=== PATIENT | female | born 1950 | race Caucasian/White ===

== ENCOUNTER → 2024-08-20 06:29 | Outpatient (ROUT) | payer MEDICARE, OTHER, MEDICAID, SELFPAY ==
[2024-08-20 08:17] LABS: Add Manual Diff / Slide Review NO; Basophils Absolute Auto 0 /uL (0-100); Basophils Percent Auto 0.3 % (0-2); Eosinophils Absolute Auto 100 /uL (0-450); Eosinophils Percent Auto 1.1 % (2-4); Hematocrit 39.1 % (36-46); Hemoglobin 13.1 g/dL (12.0-16.0); Lymphocytes Absolute Auto 1100 /uL (1100-4500); Lymphocytes Percent Auto 16.4 % (25-40); Mean Corpuscular HGB Conc 33.6 % (30-36); Mean Corpuscular Hemoglobin 31.4 PG (26-34); Mean Corpuscular Volume 93.2 fL (80-100); Monocytes Absolute Auto 500 /uL (0-900); Monocytes Percent Auto 8.4 % (3-14); Neutrophils Absolute Auto 4800 /uL (1500-7000); Neutrophils Percent Auto 73.8 % (50-75); Platelet Count 314 X10^3/uL (150-400); Red Blood Cell Count 4.19 X10^6/uL (4.0-5.2); Red Cell Distribution Width 12.8 % (11.6-14.8); White Blood Cell Count 6.5 X10^3/uL (4.5-11.0)
[2024-08-20 08:39] LABS: Alanine Aminotransferase 17 IU/L (<35); Albumin 4.2 g/dL (3.5-5.0); Albumin Globulin Ratio 1.8 (1.0-2.8); Alkaline Phosphatase 105 U/L (38-126); Aspartate Aminotransferase 26 IU/L (14-36); BUN Creatinine Ratio 25.4 (6-22); Bilirubin Total 0.7 mg/dL (0.2-1.3); Blood Urea Nitrogen 18 mg/dL (7-17); Calcium 9.7 mg/dL (8.4-10.2); Carbon Dioxide 26 mmol/L (22-32); Chloride 110 mmol/L (98-107); Estimated Glomerular Filt Rate > 60 mL/min (>60); Globulin 2.4 g/dL (1.7-4.1); Glucose 95 mg/dL (80-110); HEMOLYSIS < 15 (0-50); Potassium 4.6 mmol/L (3.4-5.1); Sodium 141 mmol/L (137-145); Total Protein 6.6 g/dL (6.3-8.2)
[2024-08-20 09:00] LABS: Thyroid Stimulating Hormone 0.389 uIU/mL (0.47-4.68)
[2024-08-20 09:36] LABS: Folate 12.4 ng/mL (2.76-20.0); Vitamin B12 573 pg/mL (239-931)
== END ==
PROVIDERS: Visit Provider Registered Nurse
DX: R63.4 Abnormal weight loss (principal); G30.1 Alzheimer's disease with late onset; F02.82 Dementia in other diseases classified elsewhere, unspecified severity, with psychotic disturbance; E03.9 Hypothyroidism, unspecified
CPT/HCPCS: 36415; 80053; 82607; 82746; 84443; 85025

== ENCOUNTER → 2024-12-16 17:42 | Outpatient (ROUT) | payer MEDICARE, OTHER, MEDICAID, SELFPAY ==
[2024-12-16 17:57] LABS: Appearance Urine UA CLEAR; Bilirubin Urine UA NEGATIVE (NEGATIVE); Color Urine UA YELLOW; Glucose Urine UA NEGATIVE (Negative); Ketones Urine UA NEGATIVE (NEGATIVE); Leukocyte Esterase Urine UA NEGATIVE (NEGATIVE); Nitrite Urine UA NEGATIVE (Negative); Occult Blood Urine UA NEGATIVE (Negative); Protein Urine UA NEGATIVE (Negative); Specific Gravity Urine UA 1.015 (1.000-1.035); Urobilinogen Urine UA 0.2 E.U./dL (0.2)
[2024-12-16 18:24] LABS: Bacteria Urine Few (2-10); Culture Indicated Urine Specimen Cultured; RBC Urine None Seen (0-5/HPF); Squamous Epithelial Cell Urine 5-10 /HPF (0-5/HPF); Urine Volume 10mL (spun); WBC Urine 5-10/HPF (0-5/HPF)
== END ==
PROVIDERS: Visit Provider Registered Nurse
DX: Z13.89 Encounter for screening for other disorder (principal)
CPT/HCPCS: 81001; 87086

== ENCOUNTER 2025-05-12 09:30 | Emergency (ER) | payer MEDICARE, OTHER, MEDICAID, SELFPAY ==
[2025-05-12 09:32] VITALS: BP 127/58; PULSE 100; RESP 15; TEMP 36.4; O2SAT 96
--- NOTE | 2025-05-12 09:39 | DI.RAD.S_ITS ---
PROCEDURE: XR HIP W PEL IF DONE RT 2V INDICATIONS: hit hip on wheelchair TECHNIQUE: 2 views of the hip were acquired. COMPARISON: None. FINDINGS AND IMPRESSION: Mild bilateral hip arthrosis. No dislocation. No displaced fractures identified. Mild calcific tendinopathy at the greater trochanters. Possible phlebolith or calcified fibroid projecting over the right pelvis. there is high concern for occult injury, consider repeat radiography in about 7 days or cross-sectional imaging. Dictated by: Daryl Valdes M.D. on 05/12/2025 at 10:17 Approved by: Daryl Valdes M.D. on 05/12/2025 at 10:17
--- NOTE | 2025-05-12 12:36 | ED_ITS ---
<Statement entered by Saurabh Cheatham MD - 06/03/25 07:33> I was personally available in the department for consultation at the time the patient was seen HPI - Extremity Injury (Lower) General Chief Complaint: Extremity Injury, Lower Stated Complaint: Rt hip injury Time Seen by Provider: 05/12/25 09:30 Source: EMS Mode of arrival: EMS History of Present Illness HPI Narrative: 74-year-old female with past medical history dementia who lives across the street at [facility] brought in by her niece status post a mechanical fall sustained earlier today. Patient's niece was called to take the patient to the emergency department. According to the niece, the [facility] folks told her that patient was complaining hip pain after she fell when she was trying to help another resident to get up from bed. Patient is an agile walker at baseline, per niece. Unclear if injury was witnessed. In the ED, patient is complaining of left-sided hip pain, but is able to ambulate unassisted. Related Data Allergies Allergy/AdvReac Type Severity Reaction Status Date / Time No Known Drug Allergies Allergy Verified 05/12/25 09:32 Review of Systems Review of Systems ROS Unobtainable: Unobtainable due to mental condition Exam Narrative Exam Narrative: Const General:?cooperative, healthy appearing and comfortable [facility] Head:?normal to inspection Ears:?hearing grossly normal bilaterally Nose:?external nose normal Face and sinus:?normal facial exam and sinuses nontender Mouth:?oral mucosae normal Throat:?posterior oropharynx normal Eyes General:?appearance normal, both eyes and all related structures Neck Neck:?normal visual inspection and no lymphadenopathy noted Resp Effort & Inspection:?normal respiratory effort Auscultation:?clear to auscultation bilaterally Cardio Rate:?regular rate Rhythm:?regular rhythm Musculoskeletal Tenderness to palpation of the left hip. No deformities, swelling, bruising noted on exam. Neuro General:?patient alert, patient awake and patient oriented x3 Initial Vital Signs Initial Vital Signs: Vital Signs Temperature 97.5 F L 05/12/25 09:32 Pulse Rate 100 H 05/12/25 09:32 Respiratory Rate 15 05/12/25 09:32 Blood Pressure 127/58 L 05/12/25 09:32 Pulse Oximetry 96 05/12/25 09:32 Oxygen Delivery Method Room Air 05/12/25 09:32 Course Orders Ordered: ED Orders 05/12/25 09:39 XR hip w pel RT 2V Stat 05/12/25 12:42 XR hip w pel LT 2V Stat 05/12/25 14:29 CT pelvis wo con Stat Vital Signs Vital signs: Vital Signs - 8 hr 05/12/25 09:32 05/12/25 15:47 Temperature 97.5 F L Pulse Rate 100 H 68 Respiratory Rate 15 15 Blood Pressure 127/58 L 145/71 H Pulse Oximetry 96 100 Oxygen Delivery Method Room Air Room Air MDM - Extremity Injury (Lower) MDM Narrative Medical decision making narrative: 74-year-old female with past medical history dementia who lives across the street at [facility] brought in by her niece status post a mechanical fall sustained earlier today. Concern for fracture/dislocation versus musculoskeletal sprain/strain versus other. Will obtain x-rays, reassess. Right hip x-ray shows no displaced fractures, no dislocation. Left hip x-ray shows no acute displaced fracture. There is a questionable trabecular lucency projecting over the mid left femoral neck. CT of the pelvis was obtained to further characterize. CT shows that the radiographic finding likely represents overlapping soft tissue at artifact. No fracture or dislocation on CT. Discussed findings with patient and patient's knees. Recommend supportive care with Tylenol and lidocaine patches. ED return precautions discussed with patient's knees. She verbalized understanding. Medical records reviewed: Yes Discharge Plan Departure Patient Disposition: Home Clinical Impression: Hip pain Qualifiers: Laterality: left Qualified Code(s): M25.552 - Pain in left hip Instructions: DI for Hip Pain Activity Restrictions/Additional Instructions: Were evaluated in the emergency department today for hip pain from a fall. CT scan did not show any fractures or dislocations. It appears that you have suffered a bruise or contusion from the fall. You may continue to take Tylenol and apply lidocaine patches for relief. Return to the ED if you have worsening symptoms, numbness, tingling, weakness. Stand Alone Forms: Patient Portal/API, Work Release Note
--- NOTE | 2025-05-12 12:42 | DI.RAD.S_ITS ---
PROCEDURE: XR HIP W PEL IF DONE LT 2V INDICATIONS: fall TECHNIQUE: 2 views of the hip were acquired. COMPARISON: [facility], CR, XR HIP W PEL RT 2V, 05/12/2025, 9:45. FINDINGS AND IMPRESSION: Mild bilateral hip arthrosis. No acute displaced fracture. There is a questionable trabecular lucency projecting over the mid left femoral neck. If there is high concern, consider CT or MRI. Dictated by: Daryl Valdes M.D. on 05/12/2025 at 13:46 Approved by: Daryl Valdes M.D. on 05/12/2025 at 13:47
--- NOTE | 2025-05-12 14:29 | DI.CT.S_ITS ---
PROCEDURE: CT PEL WO CON INDICATIONS: ? left hip fx TECHNIQUE: Noncontrast 3 mm axial sections acquired through the bony pelvis, with coronal and sagittal reformatting. COMPARISON: None. FINDINGS: Image quality: Diagnostic Bones: Bilateral mild arthrosis and calcific tendinopathy. Pelvic ring appears intact. Bilateral sacroiliac ankylosis. No displaced fractures identified. Soft tissues: No significant soft tissue calcifications. Intrapelvic structures appear unremarkable. Colonic diverticula are partially seen. IMPRESSION: No fracture or dislocation. Radiographic finding likely represent overlapping soft tissue artifact. If there is further concern, MRI could further evaluate the hip for soft tissue or nondisplaced injuries. Dictated by: Daryl Valdes M.D. on 05/12/2025 at 15:01 Approved by: Daryl Valdes M.D. on 05/12/2025 at 15:03
[2025-05-12 15:47] VITALS: BP 145/71; PULSE 68; RESP 15; O2SAT 100
== END 2025-05-12 15:48 | disposition home or self-care (01) ==
PROVIDERS: Emergency Provider Student in an Organized Health Care Education/Training Program
DX: M25.552 Pain in left hip (principal); W18.30XA Fall on same level, unspecified, initial encounter
CPT/HCPCS: 72192; 73502; 99281; 99284

== ENCOUNTER → 2025-09-02 06:07 | Outpatient (ROUT) | payer MEDICARE, OTHER, MEDICAID, SELFPAY | DX: E03.9 Hypothyroidism, unspecified (principal) | CPT/HCPCS: 36415 ==

== ENCOUNTER 2025-09-20 18:36 | Observation (INO) | payer MEDICARE, OTHER, MEDICAID, SELFPAY ==
[2025-09-20] VITALS (22 sets, daily range): BP systolic 113–169; BP diastolic 57–86; PULSE 94–151; RESP 15–44; TEMP 37–39.1; O2SAT 93–97; BMI 33.2
--- NOTE | 2025-09-20 18:54 | DI.RAD.S_ITS ---
PROCEDURE: XR CHEST 1V INDICATIONS: sepsis TECHNIQUE: One view of the chest was acquired. COMPARISON: None. FINDINGS: Surgical changes and devices: None. Lungs and pleura: Shallow inspiration. Lungs are clear. No pleural effusions or pneumothorax. Mediastinum: Mediastinal contours appear normal. Heart size is normal. Bones and chest wall: No suspicious bony lesions. Overlying soft tissues appear unremarkable. IMPRESSION: No acute cardiopulmonary abnormality is seen. Dictated by: Jose Rhoades M.D. on 09/20/2025 at 19:59 Approved by: Jose Rhoades M.D. on 09/20/2025 at 19:59
--- NOTE | 2025-09-20 19:02 | ED.GENADULT ---
HPI - General Adult General Chief complaint: Weakness Stated complaint: Lethargy/Weakness/Fever Time Seen by Provider: 09/20/25 18:53 Source: EMS Mode of arrival: EMS History of Present Illness HPI narrative: 75-year-old female with chart history of dementia, states that she lives in [place] and is visiting daughter in the local area, when in fact she is current resident at [facility], feels feverish and has chills tonight, brought in by ambulance, at triage has fever and tachycardia, SIRS screen positive for sepsis. Denies pain in her chest, abdomen, back. Denies recent cough, chest pain, shortness of breath. Denies diarrhea nausea or vomiting. Denies headache neck pain photophobia symptoms. No injury or trauma new activities recalled. No new medications. Related Data Home Medications ?Medication ?Instructions ?Recorded ?Confirmed divalproex 125 mg capsule,delayed 125 mg PO BID 09/20/25 09/20/25 release sprinkle levothyroxine 100 mcg tablet 100 mcg PO DAILY 09/20/25 09/20/25 nystatin 100,000 unit/gram topical 1 applic topical DAILY PRN rash 09/20/25 09/20/25 powder quetiapine 50 mg tablet 50 mg PO DAILY 09/20/25 09/20/25 sertraline 50 mg tablet 50 mg PO DAILY 09/20/25 09/20/25 Allergies Allergy/AdvReac Type Severity Reaction Status Date / Time No Known Drug Allergies Allergy Verified 09/20/25 18:45 Patient History Social History Smoking Status: Unknown if ever smoked Exam Narrative Exam Narrative: GENERAL: Well-developed patient, in mild distress. Tremulous HEAD: Atraumatic. Normocephalic. EYES: Pupils equal round and reactive. Extraocular motions intact. No scleral icterus. No injection or drainage. ENT: Nose without bleeding, purulent drainage. Throat without erythema, tonsillar hypertrophy or exudate. Airway patent. NECK: Trachea midline. Non tender CARDIOVASCULAR: Fast rate regular rhythm,, gallops, or rubs. RESPIRATORY: Clear to auscultation. Breath sounds equal bilaterally. No wheezes, rales, or rhonchi. GASTROINTESTINAL: Abdomen soft, non-tender, nondistended. EXTREMITIES: No edema or joint tenderness. BACK: Nontender without deformity or crepitance. No flank tenderness. NEURO: AOx3. Motor functions grossly nonfocal. SKIN: No rash or erythema of visible areas Initial Vital Signs Initial Vital Signs: Vital Signs Temperature 102.4 F H 09/20/25 18:45 Pulse Rate 110 H 09/20/25 18:45 Respiratory Rate 20 09/20/25 18:45 Blood Pressure 167/74 H 09/20/25 18:45 Pulse Oximetry 93 09/20/25 18:45 Oxygen Delivery Method Room Air 09/20/25 18:45 Course Orders Ordered: ED Orders 09/20/25 18:54 XR chest 1V Stat Urinalysis and Microscopic Stat EKG-12 Lead Stat 09/20/25 18:56 Complete Blood Count AUTO DIFF Stat Comprehensive Metabolic Panel Stat Lactate (Lactic Acid) Stat Procalcitonin Stat 09/20/25 19:19 Blood Culture Stat 09/20/25 19:29 CT abdomen pelvis wo con Stat 09/20/25 19:45 Covid-19 + FLU A/B + RSV - PCR Stat 09/20/25 21:46 Consult to Occupational Therapy Evaluate & Treat Consult to Physical Therapy Evaluate & Treat 09/21/25 06:00 Basic Metabolic Panel DAILY Complete Blood Count AUTO DIFF DAILY Acetaminophen (Acetaminophen 325 Mg Tablet) 650 mg PO Q6H PRN PRN Reason: Fever/Mild Pain (1-3) Divalproex Sodium (Divalproex 125 Mg Cap) 125 mg PO BID MILLA Sodium Chloride (Normal Saline 0.9%) 1,000 mls @ 75 mls/hr IV CONT MILLA Last Admin: 09/20/25 22:06 Dose: 75 mls/hr Documented By: BZ Levothyroxine Sodium (Levothyroxine 100 Mcg Tablet) 100 mcg PO DAILY MILLA Naloxone HCl (Naloxone 0.4 Mg/Ml Vial) 0.2 mg IV Q2MIN PRN PRN Reason: Opiate Reversal Nystatin (Nystatin Powder 15gm) 1 applic TOP DAILY PRN PRN Reason: Rash Olanzapine (Olanzapine Odt 10 Mg Tab) 10 mg PO Q6H PRN PRN Reason: Agitation Last Admin: 09/21/25 00:45 Dose: 10 mg Documented By: SH Ondansetron HCl (Ondansetron 4 Mg/2 Ml Inj) 4 mg IV Q8HR PRN PRN Reason: Nausea And Vomiting Quetiapine Fumarate (Quetiapine 25 Mg Tablet) 50 mg PO DAILY MILLA Sertraline HCl (Sertraline 50 Mg Tablet) 50 mg PO DAILY MILLA Discontinued Medications Ceftriaxone Sodium 2,000 mg/ (Sodium Chloride) 100 mls @ 200 mls/hr IV STAT ONE Stop: 09/20/25 18:55 Last Infusion: 09/20/25 20:25 Dose: Infused Documented By: Admin: 09/20/25 19:32 Dose: 200 mls/hr Documented By: PETE Sodium Chloride (Normal Saline 0.9%) 2,634 mls @ 1,756 mls/hr 30 ml/kg infuse over 90 min (2634 ml) IV NOW ONE Stop: 09/20/25 20:32 Last Infusion: 09/20/25 21:22 Dose: Infused Documented By: Admin: 09/20/25 19:12 Dose: 1,756 mls/hr Documented By: PETE Sodium Chloride (Normal Saline 0.9%) 1,000 mls @ 2,700 mls/hr IV BOLUS ONE Stop: 09/20/25 19:19 Last Admin: 09/20/25 19:31 Dose: Not Given Documented By: PETE Ibuprofen (Ibuprofen 400 Mg Tablet) 800 mg PO NOW ONE Stop: 09/20/25 19:43 Last Admin: 09/20/25 20:01 Dose: 800 mg Documented By: SIXTO Olanzapine (Olanzapine 10 Mg Vial) 5 mg IM Q6H PRN PRN Reason: Agitation Vital Signs Vital signs: Vital Signs - 8 hr 09/20/25 18:45 09/20/25 18:56 09/20/25 19:00 Temperature 102.4 F H Pulse Rate 110 H 108 H 114 H Respiratory Rate 20 15 20 Blood Pressure 167/74 H Pulse Oximetry 93 96 96 Oxygen Delivery Method Room Air 09/20/25 19:01 09/20/25 19:01 09/20/25 19:15 Temperature 101.7 F H Pulse Rate 99 H Respiratory Rate 16 Blood Pressure 169/63 H Pulse Oximetry 96 Oxygen Delivery Method 09/20/25 19:30 09/20/25 20:00 09/20/25 20:00 Temperature Pulse Rate 105 H 151 H Respiratory Rate 18 18 Blood Pressure 137/67 Pulse Oximetry 96 97 Oxygen Delivery Method Room Air 09/20/25 20:20 09/20/25 20:20 09/20/25 20:23 Temperature Pulse Rate 110 H Respiratory Rate 20 Blood Pressure 146/74 H 130/86 Pulse Oximetry 97 Oxygen Delivery Method 09/20/25 20:23 09/20/25 20:30 09/20/25 20:30 Temperature Pulse Rate 107 H 104 H Respiratory Rate 18 19 Blood Pressure 133/78 Pulse Oximetry 96 96 Oxygen Delivery Method 09/20/25 20:45 09/20/25 20:45 09/20/25 21:00 Temperature 98.6 F Pulse Rate 105 H Respiratory Rate 20 Blood Pressure 129/66 Pulse Oximetry 96 Oxygen Delivery Method 09/20/25 21:00 09/20/25 21:00 09/20/25 21:16 Temperature Pulse Rate 104 H Respiratory Rate 20 Blood Pressure 136/67 144/66 H Pulse Oximetry 93 Oxygen Delivery Method 09/20/25 21:16 09/20/25 21:30 09/20/25 21:30 Temperature Pulse Rate 105 H 107 H Respiratory Rate 24 20 Blood Pressure 122/60 Pulse Oximetry 95 95 Oxygen Delivery Method 09/20/25 21:45 09/20/25 21:45 09/20/25 22:00 Temperature Pulse Rate 101 H Respiratory Rate 16 Blood Pressure 116/57 L 126/58 L Pulse Oximetry 93 Oxygen Delivery Method Room Air 09/20/25 22:00 Temperature Pulse Rate 101 H Respiratory Rate 22 Blood Pressure Pulse Oximetry 95 Oxygen Delivery Method Medical Decision Making Lab Data Lab results reviewed: Yes I reviewed the patient's lab results. Lab results narrative: White blood cell count 9200, hemoglobin 12.4, platelets adequate. Glucose 128. Renal function, serum CO2, electrolytes normal. AST slight elevation, other liver functions normal. Lactate 1.9 normal, procalcitonin not elevated. COVID positive, RSV and influenza negative. 09/20/25 18:56 09/20/25 18:56 Labs: Lab Results 09/20/25 09/20/25 Range/Units 18:56 19:45 WBC 9.2 (4.5-11.0) X10^3/uL RBC 3.94 L (4.0-5.2) X10^6/uL Hgb 12.4 (12.0-16.0) g/dL Hct 37.2 (36-46) % MCV 94.5 (80-100) fL MCH 31.6 (26-34) PG MCHC 33.4 (30-36) % RDW 13.3 (11.6-14.8) % Plt Count 255 (150-400) X10^3/uL Neut % (Auto) 83.3 H (50-75) % Lymph % (Auto) 8.0 L (25-40) % [place] % (Auto) 8.5 (3-14) % Eos % (Auto) 0.1 L (2-4) % Baso % (Auto) 0.1 (0-2) % Neut # (Auto) 7600 H (8464-5943) /uL Lymph # (Auto) 700 L (4882-9890) /uL [place] # (Auto) 800 (0-900) /uL Eos # (Auto) 0 (0-450) /uL Baso # (Auto) 0 (0-100) /uL Sodium 142 (137-145) mmol/L Potassium 3.9 (3.4-5.1) mmol/L Chloride 105 (98-107) mmol/L Carbon Dioxide 28 (22-32) mmol/L BUN 23 H (7-17) mg/dL Creatinine 0.82 (0.52-1.04) mg/dL Estimated GFR > 60 (>60) mL/min BUN/Creatinine Ratio 28.0 H (6-22) Glucose 128 H (70-99) mg/dL Lactate 1.9 (0.7-2.1) mmol/L Calcium 9.2 (8.4-10.2) mg/dL Total Bilirubin 0.2 (0.2-1.3) mg/dL AST 37 H (14-36) IU/L ALT 23 (<35) IU/L Alkaline Phosphatase 87 (38-126) U/L Total Protein 7.3 (6.3-8.2) g/dL Albumin 4.4 (3.5-5.0) g/dL Globulin 2.9 (1.7-4.1) g/dL Albumin/Globulin Ratio 1.5 (1.0-2.8) Procalcitonin 0.072 (<0.5) ng/mL SARS-CoV-2 (PCR) Positive H (Negative) Influenza A (RT-PCR) Flu a negative (NEGATIVE) Influenza B (RT-PCR) Flu b negative (NEGATIVE) RSV (PCR) Negative (Negative) Imaging Data Chest x-ray: Radiologist's Impression: [address] [address] XRay Report Signed Patient: Sobia Chadwick MR#: [id number] : 1950 Acct:[id number] Age/Sex: 75 / F Date of Service: 09/20/25 Loc: ED Accession Number: [id number] Procedure: XR chest 1V Ordering Provider: Brayan Mancini MD PROCEDURE: XR CHEST 1V INDICATIONS: sepsis TECHNIQUE: One view of the chest was acquired. COMPARISON: None. FINDINGS: Surgical changes and devices: None. Lungs and pleura: Shallow inspiration. Lungs are clear. No pleural effusions or pneumothorax. Mediastinum: Mediastinal contours appear normal. Heart size is normal. Bones and chest wall: No suspicious bony lesions. Overlying soft tissues appear unremarkable. IMPRESSION: No acute cardiopulmonary abnormality is seen. Dictated by: Jose Rhoades M.D. on 09/20/2025 at 19:59 Approved by: Jose Rhoades M.D. on 09/20/2025 at 19:59 CT scan - abdomen/pelvis: Radiologist's Impression: [address] [address] [address] Scan Report Signed Patient: Sobia Chadwick MR#: [id number] : 1950 Acct:[id number] Age/Sex: 75 / F Date of Service: 09/20/25 Loc: ED Accession Number: [id number] Procedure: CT abdomen pelvis wo con Ordering Provider: Brayan Mancini MD PROCEDURE: CT ABDOMEN PELVIS WO CON INDICATIONS: fever TECHNIQUE: CT of the abdomen and pelvis was obtained without intravenous contrast. Coronal and sagittal reformats were performed. For radiation dose reduction, the following was used: automated exposure control, adjustment of mA and/or kV according to patient size. COMPARISON: None. FINDINGS: Image quality: Moderately motion degraded examination. Lower Chest: No significant findings. ABDOMEN: Liver: No contour-deforming mass. Gallbladder: No radiopaque gallstones or wall thickening. Biliary ducts: No biliary dilation. Pancreas: No ductal dilation. Spleen: Size is within normal limits. Adrenal Glands: No adrenal nodules. Kidneys and Ureters: No hydronephrosis. No contour-deforming mass. Stomach and Bowel: Normal colonic caliber, without significant wall thickening. Scattered colonic diverticula without evidence of acute diverticulitis. Normal appendix. Peritoneum: No abnormal intraperitoneal fluid. No free air. Ventral Wall: Small fat containing umbilical hernia. Abdominal Nodes: No retroperitoneal or mesenteric adenopathy by size criteria. Vessels: Aorta and inferior vena cava are normal in size. PELVIS: Pelvic Organs: Unremarkable. Bladder: Unremarkable. Pelvic Nodes: No enlarged lymph nodes. Miscellaneous: Small bilateral fat containing inguinal hernias. Bones: No aggressive osseous abnormality. Degenerative changes of the osseous structures. IMPRESSION: Moderately motion degraded examination. Within limitations: No acute abnormality is identified in the abdomen or pelvis. Dictated by: Sebas Dash M.D. on 09/20/2025 at 20:38 Approved by: Sebas Dash M.D. on 09/20/2025 at 20:42 ECG Data Attestation: I personally reviewed and interpreted this ECG as follows: Interpretation: 1910, normal sinus rhythm with a rate of 99, no obvious ST segment elevation or depression changes. Movement artifact noted, patient tremulous. PA 156, QRS 90, QTC 433. [facility] Narrative Medical decision making narrative: 75-year-old female resident of [facility], history of dementia, believes that she is visiting her daughter in the area that she lives in [place], has shaking chills and fever tonight, BIBA, fever and tachycardia on triage noted, no oxygen requirement, normotensive. Feels weak all over. Sepsis alert. Blood cultures, IV fluids, IV ceftriaxone, urine requested, chest x-ray and COVID swab sent. EKG sinus rhythm, no obvious acute ischemic changes. Chest x-ray, no lobar infiltrate, see radiology report. Lab data: White blood cell count 9200, hemoglobin 12.4, platelets adequate. Glucose 128. Renal function, serum CO2, electrolytes normal. AST slight elevation, other liver functions normal. Lactate 1.9 normal, procalcitonin not elevated. COVID positive, RSV and influenza negative. CT abdomen and pelvis noncontrast, no acute changes, some limitation due to movement/tremor artifact. See radiology report. COVID found to be positive. Empiric antibiotics ceftriaxone for positive SIRS, shaking chills rigors, generalized weakness, history of dementia. Consider admission. Patient feels that she needs to be admitted. We will contact hospitalist. [id number], case discussed with hospitalist Dr. Martinez who accepts patient for admission to observation Critical Care Time Critical Care Time Critical Care Time: Yes Total Critical Care Time: 35 Attestation: The high probability of a clinically significant, sudden or life threatening deterioration of the [abdominopelvic, cardiopulmonary, genitourinary] system(s) required my full and direct attention, intervention and personal management. The aggregate critical care time was [35] minutes. This time is in addition to time spent performing reported procedures but includes the following: [x] Data Review and interpretation [x] Patient assessment and monitoring of vital signs [x] Documentation [x] Medication orders and management Discharge Plan Departure Patient Disposition: Admitted as Observation Clinical Impression: COVID-19, Sepsis, Generalized weakness Admit Date/Time: 09/20/25 22:09 Admit Provider: Gagan Martinez Sepsis Evaluation (ED) Level 1 - Infection Sepsis Infection Criteria Present: Suspected New Infection Level 2 - SIRS Sepsis SIRS Criteria Present: Temperature > 101.0 or < 96.8 F and Pulse > 90 bpm Response It is my opinion that this patient have a likely infectious etiology for meeting sepsis criteria: Does Fluid calculation based on 30 mL/kg within 1hr of criteria: ABW used Antibiotics initiated within 1 hr of Sepis dx: Yes (Ordered after triage with positive sepsis screen) Tissue Perfusion Reassessed within 6 hrs of infusion start time: Yes Date of Tissue Perfusion Reassessment completed: 09/20/25 Time Tissue Perfusion Reassessment completed: 20:56 (Rigors have stopped, heart rate seemed to be improving to 100-105 range from 120s, COVID positive noted)
--- NOTE | 2025-09-20 19:10 | EKG_ITS ---
[place] [id number] [place] [address] Test Date: 2025-09-20 Pat Name: Sobia Chadwick Department: Room: 219 Gender: Female Executive Director: NOEMI : 1950 Requested By: Order Number: [id number] Reading MD: David Lange MD Measurements Intervals [place] Rate: 99 P: 52 IN: 156 QRS: -9 QRSD: 90 T: 14 QT: 338 QTc: 433 Interpretive Statements Normal sinus rhythm Nonspecific ST and T wave abnormality Electronically Signed On 09-22-2025 6:44:07 PST by David Lange MD
[2025-09-20 19:13] LABS: Add Manual Diff / Slide Review NO; Hematocrit 37.2 % (36-46); Hemoglobin 12.4 g/dL (12.0-16.0); Lymphocytes Absolute Auto 700 /uL (1100-4500); Mean Corpuscular HGB Conc 33.4 % (30-36); Mean Corpuscular Hemoglobin 31.6 PG (26-34); Mean Corpuscular Volume 94.5 fL (80-100); Platelet Count 255 X10^3/uL (150-400)
[2025-09-20 19:26] LABS: Alanine Aminotransferase 23 IU/L (<35); Albumin 4.4 g/dL (3.5-5.0); Albumin Globulin Ratio 1.5 (1.0-2.8); Alkaline Phosphatase 87 U/L (38-126); Blood Urea Nitrogen 23 mg/dL (7-17); Calcium 9.2 mg/dL (8.4-10.2); Carbon Dioxide 28 mmol/L (22-32); Chloride 105 mmol/L (98-107); Estimated Glomerular Filt Rate > 60 mL/min (>60); Globulin 2.9 g/dL (1.7-4.1); Glucose 128 mg/dL (70-99); HEMOLYSIS < 15 (0-50); Potassium 3.9 mmol/L (3.4-5.1); Sodium 142 mmol/L (137-145); Total Protein 7.3 g/dL (6.3-8.2)
[2025-09-20 19:27] LABS: Lactate (Lactic Acid) 1.9 mmol/L (0.7-2.1)
--- NOTE | 2025-09-20 19:29 | DI.CT.S_ITS ---
PROCEDURE: CT ABDOMEN PELVIS WO CON INDICATIONS: fever TECHNIQUE: CT of the abdomen and pelvis was obtained without intravenous contrast. Coronal and sagittal reformats were performed. For radiation dose reduction, the following was used: automated exposure control, adjustment of mA and/or kV according to patient size. COMPARISON: None. FINDINGS: Image quality: Moderately motion degraded examination. Lower Chest: No significant findings. ABDOMEN: Liver: No contour-deforming mass. Gallbladder: No radiopaque gallstones or wall thickening. Biliary ducts: No biliary dilation. Pancreas: No ductal dilation. Spleen: Size is within normal limits. Adrenal Glands: No adrenal nodules. Kidneys and Ureters: No hydronephrosis. No contour-deforming mass. Stomach and Bowel: Normal colonic caliber, without significant wall thickening. Scattered colonic diverticula without evidence of acute diverticulitis. Normal appendix. Peritoneum: No abnormal intraperitoneal fluid. No free air. Ventral Wall: Small fat containing umbilical hernia. Abdominal Nodes: No retroperitoneal or mesenteric adenopathy by size criteria. Vessels: Aorta and inferior vena cava are normal in size. PELVIS: Pelvic Organs: Unremarkable. Bladder: Unremarkable. Pelvic Nodes: No enlarged lymph nodes. Miscellaneous: Small bilateral fat containing inguinal hernias. Bones: No aggressive osseous abnormality. Degenerative changes of the osseous structures. IMPRESSION: Moderately motion degraded examination. Within limitations: No acute abnormality is identified in the abdomen or pelvis. Dictated by: Sebas Dash M.D. on 09/20/2025 at 20:38 Approved by: Sebas Dash M.D. on 09/20/2025 at 20:42
[2025-09-20] MEDS: cefTRIAXone 2,000 MG in SODIUM CHLORIDE 0.9% 100 ML 200 MG IV (19:32)
[2025-09-20 19:43] LABS: Procalcitonin 0.072 ng/mL (<0.5)
[2025-09-20] MEDS: IBUPROFEN 400 MG TABLET 800 MG PO (20:01)
[2025-09-20 20:27] LABS: Influenza A - CEPHEID Flu A NEGATIVE (NEGATIVE); Influenza B - CEPHEID Flu B NEGATIVE (NEGATIVE)
[2025-09-20 20:33] LABS: COVID-19 CEPHEID 4-PLEX PCR POSITIVE (Negative)
--- NOTE | 2025-09-20 21:24 | PC.NURSE ---
Provider Live gives verbal order to stop fluid bolus.
[2025-09-20] MEDS: SODIUM CHLORIDE 0.9% 1,000 ML 75 ML IV (22:06)
--- NOTE | 2025-09-20 22:36 | PC.NURSE ---
Returned call to [facility] to give update patient will be admitted. Call was given to Isaura Ross from [facility]. ([phone])
--- NOTE | 2025-09-21 00:27 | PC.WOUNDPHOT ---
#1 right breast fold #2 left breast fold
[2025-09-21] MEDS: OLANZapine ODT 10 MG TAB PO (00:45)
[2025-09-21 02:42] LABS: Appearance Urine UA CLEAR; Bilirubin Urine UA NEGATIVE (NEGATIVE); Color Urine UA YELLOW; Glucose Urine UA NEGATIVE (Negative); Ketones Urine UA NEGATIVE (NEGATIVE); Leukocyte Esterase Urine UA 3+ (NEGATIVE); Nitrite Urine UA POSITIVE (Negative); Occult Blood Urine UA TRACE-INTACT (Negative); Protein Urine UA NEGATIVE (Negative); Specific Gravity Urine UA <=1.005 (1.000-1.035); Urobilinogen Urine UA 0.2 E.U./dL (0.2)
[2025-09-21 02:57] LABS: pH Urine UA 6.0 (4.5-8.0)
[2025-09-21 02:59] LABS: Culture Indicated Urine Specimen Cultured
--- NOTE | 2025-09-21 07:08 | P.HP_ITS ---
History of Present Illness History of Present Illness Date Patient Seen: 09/20/25 Time Patient Seen: 23:56 Chief complaint: Lethargy/Weakness/Fever Narrative: 75 year old female with past medical history of dementia, hypothyroidism and depression was sent here from her care facility with fever and tachycardia. Of note, the patient is confuse and unable to give any reliable history. Per report, the aptient was noted to have fever and tachycardia and was sent to our ER for further evaluation. Note due to patient dementia history is very limited. In our ER, the patient remains confuse though hemodynamically stable. The patient WBC was normal as well as lactic acid. However COVID was positive. CXR was clear without sign of pneumonia and patient was not hypoxemic. Due to generalized weakness and positive for COVID/feverk/UTI, our ER physician requested admission to monitor with IVF. Note UA also positive for UTI and IV Ceftriaxone given. [facility] Social History Smoking Status: Unknown if ever smoked Meds Home Medications and Allergies Home Medications ?Medication ?Instructions ?Recorded ?Confirmed ?Type divalproex 125 mg capsule,delayed 125 mg PO BID 09/20/25 History release sprinkle levothyroxine 100 mcg tablet 100 mcg PO DAILY 09/20/25 09/20/25 History nystatin 100,000 unit/gram topical 1 applic topical DA JOHNNY PRN rash 09/20/25 09/20/25 History powder quetiapine 50 mg tablet 50 mg PO DAILY 09/20/2509/07 History sertraline 50 mg tablet 50 mg PO DAILY 09/20/2509/07 History Allergies Allergy/AdvReac Type Severity Reaction Status Date / Time No Known Drug Allergies Allergy Verified 09/20/25 18:45 Review of Systems Review of Systems ROS: Yes All systems reviewed with the patient and are negative except as otherwise documented Exam Vital Signs (past 8 hours): - 09/20/25 23:15 09/20/25 23:15 09/20/25 23:30 Temperature 99.2 F Pulse Rate 94 H 96 H Respiratory Rate 17 21 Blood Pressure 120/58 L 119/59 L Pulse Oximetry 95 95 Oxygen Delivery Method Room Air Oxygen Flow Rate 0 Oxygen Delivery Method Room Air Oxygen Flow Rate 0 Narrative Exam Narrative: Physical Exam: GENERAL: The patient is not in any acute distressed. Awake but very confuse HEENT: Nonicteric sclerae, PERRLA, EOMI. Oropharynx clear. Moist mucous membranes. Conjunctivae appear well perfused. HEART: Regular rate and rhythm without murmurs. No lower extremities edema. LUNGS: Clear to auscultation bilaterally. No wheezing, crackles or rhonchi ABDOMEN: Soft, positive bowel sounds, nontender. SKIN: No rash, no excessive bruising, petechiae, or purpura. NEUROLOGIC: Confuse Objective Labs 09/20/25 18:56 09/20/25 18:56 Labs: Laboratory Results - last 24 hr 09/20/25 09/20/25 09/21/25 18:56 19:45 00:01 WBC 9.2 RBC 3.94 L Hgb 12.4 Hct 37.2 MCV 94.5 MCH 31.6 MCHC 33.4 RDW 13.3 Plt Count 255 Neut % (Auto) 83.3 H Lymph % (Auto) 8.0 L [place] % (Auto) 8.5 Eos % (Auto) 0.1 L Baso % (Auto) 0.1 Neut # (Auto) 7600 H Lymph # (Auto) 700 L [place] # (Auto) 800 Eos # (Auto) 0 Baso # (Auto) 0 Sodium 142 Potassium 3.9 Chloride 105 Carbon Dioxide 28 BUN 23 H Creatinine 0.82 Estimated GFR > 60 BUN/Creatinine Ratio 28.0 H Glucose 128 H Lactate 1.9 Calcium 9.2 Total Bilirubin 0.2 AST 37 H ALT 23 Alkaline Phosphatase 87 Total Protein 7.3 Albumin 4.4 Globulin 2.9 Albumin/Globulin Ratio 1.5 Procalcitonin 0.072 Urine Color Yellow Urine Appearance Clear Urine pH 6.0 Ur Specific [place] <=1.005 Urine Protein Negative Urine Glucose (UA) Negative Urine Ketones Negative Urine Occult Blood Trace-intact Urine Nitrate Positive H Urine Bilirubin Negative Urine Urobilinogen 0.2 Ur Leukocyte Esterase 3+ H Urine RBC 0-1/hpf Urine WBC 10-30/hpf H Ur Squamous Epith Cells 0-1 /hpf Urine Bacteria Few (2-10) H Ur Culture Indicated? Specimen cultured Vol Urine Centrifuged 10ml (spun) SARS-CoV-2 (PCR) Positive H Influenza A (RT-PCR) Flu a negative Influenza B (RT-PCR) Flu b negative RSV (PCR) Negative Assessment & Plan Assessment & Plan narrative: UTI. Admit the patient to medical floor as inpatient. Continue IVF and IV Ceftriaxone. Patient not septic now with normal lactic acid and WBC. COVID infection. NO clear sign of pneumonia and patient hypoxic for now. Hold of any further treatment. Dementia. PT/OT Depression. Resume home medications in AM. DVT PPx Lovenox Code status full code (will need to verify in AM) Disposition back to care facility in AM. - As the provider of this telehealth evaluation, requested by the patient's evaluating physician, I attest that I introduced myself to the patient, provided my credentials and determined that telemedicine via a real-time, 2 way interactive audio and video platform is an appropriate and effective means of providing this service. - I reviewed the patient's chart and had a discussion with the member of the patient's treatment team. - The patient and I mutually agreed with continuation of this evaluation via telemedicine. The patient consented for the telemedicine evaluation. - This virtual encounter was taken place from [place] by Dr. Gagan Martinez. The patient was evaluated at [facility]. The encounter was approximately 35 minutes. The nurse was present during the entire time of the encounter and was able assists with the stethoscope to listen to the patients. Time-Based Coding :: [TOTAL MINUTES] spent with patient and on the chart (including review of chart, obtaining history, exam, reviewing outside data, placing orders, documenting exam and treatment plan, and counseling patient) on [DATE].
--- NOTE | 2025-09-21 08:20 | PT.IIE ---
Physical Therapy Inpatient Evaluation/Re-Eval M1 PT IP Prior Functional Status Start: 09/21/25 11:53 Freq: Status: Active Protocol: Document 09/21/25 11:54 NW (Rec: 09/21/25 12:08 NW [id number]) Medical Review Prior Functional Status Communication Pt is diagnosed with dementia and is a poor historian. Mobility and Gait Unknown secondary to dementia. Activities of Daily Pt resides in memory care facility with staff present Living and IADL's to assist as needed. Prior Functional Unknown secondary to dementia. Level (Other details ) Social History Household Members none Living Arrangements Assisted Living Number of Floors ( One Floor Floors) Additional Social Unknown secondary to dementia, pt lives in memory care History Comment facility. M2 PT-IP Current Condition Start: 09/21/25 11:53 Freq: Status: Active Protocol: Document 09/21/25 11:54 NW (Rec: 09/21/25 12:08 NW [id number]) Physical Therapy Current Condition Current Condition Evaluation Date 09/21/25 Treatment Diagnosis Weakness Onset Date 09/20/25 M3 PT-IP Subjective Start: 09/21/25 11:53 Freq: Status: Active Protocol: Document 09/21/25 11:54 NW (Rec: 09/21/25 12:08 NW [id number]) Subjective Physical Therapy Visit Type Type Initial Evaluation Visit Start Time 08:55 Visit Stop Time 09:20 Number of INSURANCE COMPLIANCE ANALYST Visits 0 Physical Therapy Visit Comments Patient Comments Pt is found resting in bed with bed alarm on. Pt is agreeable to PT evaluation. Patient Goals Pt is confused where she is and why she is here. M4 PT-IP Mobility and Gait Start: 09/21/25 11:53 Freq: Status: Active Protocol: Document 09/21/25 11:54 NW (Rec: 09/21/25 12:08 NW [id number]) PT-Bed Mobility Assessment Rolling Level of Assist Independent Supine to Sit Supine to Sit Standby Assistance,Head of Bed Elevated,Bedrails Sit to Supine Sit to Supine Standby Assistance,Head of Bed Elevated,Bedrails Scooting Scooting to Edge of Standby Assistance Bed PT-Transfer Assessment Sit to and From Stand Sit to and from Standby Assistance,1 Person Assistance,Use of Upper Stand Extremities Equipment Transfer Assistive Gait Belt,Front Wheeled Walker Device Transfers Transfer Destination Bed,Chair Transfer Technique Stand Step Pivot Transfer Ability Level of Assist Standby Assistance,1 Person Assistance,Use of Upper Extremities Comments Mobility Comments Pt has adequate power production with no loss of balance once upright. Gait Assessment Gait Gait Assistance Contact Guard Assist Required: Distance (Feet) 25 Able to Maintain Yes Weight Bearing Status During Gait Assistive Devices Assistive Device Gait Belt,Front Wheeled Walker Gait Deviations General Gait Pattern Within Normal Limits Comments Gait Comments Ambulates with good velocity, chio, foot clearance, and pathfinding with AD management. No cues necessary for safety awareness. Stair Climbing Assessment Comments Stair Climbing DNT Comments PT-Balance Assessment Sitting Balance and Reactions Static Sitting Normal Balance Ability Dynamic Sitting Good Balance Ability Standing Balance and Reactions Static Standing Fair Balance Ability Dynamic Standing Poor Balance Ability Device Used FWW and none Balance Tests Romberg 30 sec no UE support EO M5 PT-IP Objective Assessments Start: 09/21/25 11:53 Freq: Status: Active Protocol: Document 09/21/25 11:54 NW (Rec: 09/21/25 12:08 NW [id number]) Orientation Orientation/Cognition Level of Alertness Alert Orientation Name Memory Description Short Term Impaired,Fci Impaired Gross Range of Motion Upper Extremity ROM Assessment Within Functional Limits Lower Extremity ROM Assessment Within Functional Limits Strength Upper Extremity Strength Assessment Within Functional Limits Lower Extremity Strength Assessment Within Functional Limits Sensation Assessment Sensation Gross Sensation WNL Muscle Tone Muscle Tone WNL Yes M6 PT-IP Treatment Start: 09/21/25 11:53 Freq: Status: Active Protocol: Document 09/21/25 11:54 NW (Rec: 09/21/25 12:08 NW [id number]) Physical Therapy Treatment Education Education Provided Safety Other Treatments Other Treatment Education on continuing to get up with staff only with Performed FWW. Re-orientated patient prior to mobility. M7 PT-IP Assessment and Plan Start: 09/21/25 11:53 Freq: Status: Active Protocol: Document 09/21/25 11:54 NW (Rec: 09/21/25 12:08 NW [id number]) PT Summary Assessment and Plan Potential Rehabilitation Excellent Potential Status of Condition Stable at Evaluation Summary Impairments Activity Tolerance Progress Towards Progressing Toward Goals Goals Assessment Summary Sobia is a 75 yr old female admitted secondary to weakness, fever, possible UTI and confirmed COVID. Pt does have a history of dementia and is a poor historian who is unable to state prior mobility status. Pt does live in a memory care facility with people able to assist if needed. Pt is SBA for bed mobility and transfers and CGA for ambulation within the room. Vitals remain stable throughout session with no signs of exertion. No cues were given for safety awareness nor AD management. PT will continue to ambulate with pt to progress distance. At this time recommending no further PT assistance upon discharge secondary. Goals Transfer Goal Independent Gait Goal Independent Gait Distance 100 Days to Meet Goals 2 Frequency of Treatment Frequency Of Once a Day Treatment Treatment Plan Physical Therapy Transfer Training,Gait Training,Discharge Planning Treatment Plan Precautions Other Precautions COVID Weight Bearing Status Weight Bearing Weight Bear as Tolerated Status Recommendations To Nursing Amount of Assist 1 Person Assist Needed Discharge Recommendations PT Discharge Home with Assistance Recommendations Other Discharge Return to prior living arrangement. Pt does not need Recommendations assistance with mobility at this time. Equipment Needed for unknown at baseline, would recommend FWW use. Home Before Discharge - PT assist 1
[2025-09-21] MEDS: DIVALPROEX 125 MG CAP PO (09:32)
[2025-09-21] MEDS: SERTRALINE 50 MG TABLET PO (09:32)
--- NOTE | 2025-09-21 09:35 | PM.PN.1 ---
Subjective Subjective Date Patient Seen: 09/21/25 Interval history: 75 year old female with past medical history of dementia, hypothyroidism and depression was sent here from her care facility with fever and tachycardia. Of note, the patient is confuse and unable to give any reliable history. Per report, the patient was noted to have fever and tachycardia and was sent to our ER for further evaluation. Note due to patient dementia history is very limited. In our ER, the patient remains confuse though hemodynamically stable. The patient WBC was normal as well as lactic acid. However COVID was positive. CXR was clear without sign of pneumonia and patient was not hypoxemic. Due to generalized weakness and positive for COVID/fever/UTI, our ER physician requested admission to monitor with IVF. Note UA also positive for UTI and IV Ceftriaxone given. Assessment & Plan Assessment & Plan narrative: UTI. Admit the patient to medical floor as inpatient. Continue IVF and IV Ceftriaxone. Patient not septic now with normal lactic acid and WBC. COVID infection. NO clear sign of pneumonia and patient hypoxic for now. Hold of any further treatment. Dementia. PT/OT Depression. Resume home medications in AM. DVT PPx Lovenox Code status full code (will need to verify in AM) Disposition back to care facility in AM. Exam Vital Signs (past 8 hours): Oxygen Delivery Method Room Air Oxygen Flow Rate 0 Objective Labs 09/20/25 18:56 09/20/25 18:56 Labs: Laboratory Results - last 24 hr 09/20/25 09/20/25 09/21/25 18:56 19:45 00:01 WBC 9.2 RBC 3.94 L Hgb 12.4 Hct 37.2 MCV 94.5 MCH 31.6 MCHC 33.4 RDW 13.3 Plt Count 255 Neut % (Auto) 83.3 H Lymph % (Auto) 8.0 L [place] % (Auto) 8.5 Eos % (Auto) 0.1 L Baso % (Auto) 0.1 Neut # (Auto) 7600 H Lymph # (Auto) 700 L [place] # (Auto) 800 Eos # (Auto) 0 Baso # (Auto) 0 Sodium 142 Potassium 3.9 Chloride 105 Carbon Dioxide 28 BUN 23 H Creatinine 0.82 Estimated GFR > 60 BUN/Creatinine Ratio 28.0 H Glucose 128 H Lactate 1.9 Calcium 9.2 Total Bilirubin 0.2 AST 37 H ALT 23 Alkaline Phosphatase 87 Total Protein 7.3 Albumin 4.4 Globulin 2.9 Albumin/Globulin Ratio 1.5 Procalcitonin 0.072 Urine Color Yellow Urine Appearance Clear Urine pH 6.0 Ur Specific [place] <=1.005 Urine Protein Negative Urine Glucose (UA) Negative Urine Ketones Negative Urine Occult Blood Trace-intact Urine Nitrate Positive H Urine Bilirubin Negative Urine Urobilinogen 0.2 Ur Leukocyte Esterase 3+ H Urine RBC 0-1/hpf Urine WBC 10-30/hpf H Ur Squamous Epith Cells 0-1 /hpf Urine Bacteria Few (2-10) H Ur Culture Indicated? Specimen cultured Vol Urine Centrifuged 10ml (spun) SARS-CoV-2 (PCR) Positive H Influenza A (RT-PCR) Flu a negative Influenza B (RT-PCR) Flu b negative RSV (PCR) Negative PFSH Social History Smoking Status: Unknown if ever smoked Assessment & Plan Time-Based Coding :: [TOTAL MINUTES] spent with patient and on the chart (including review of chart, obtaining history, exam, reviewing outside data, placing orders, documenting exam and treatment plan, and counseling patient) on [DATE].
[2025-09-21 09:41] VITALS: BP 125/62; PULSE 67; RESP 18; TEMP 36.4; O2SAT 100
--- NOTE | 2025-09-21 10:49 | P.DS_ITS ---
History of Present Illness History of Present Illness Date Patient Seen: 09/21/25 Time Patient Seen: 10:50 Chief complaint: Lethargy/Weakness/Fever Narrative: 75 year old female with past medical history of dementia, hypothyroidism and depression was sent here from her care facility with fever and tachycardia. Of note, the patient is confuse and unable to give any reliable history. Per report, the aptient was noted to have fever and tachycardia and was sent to our ER for further evaluation. Note due to patient dementia history is very limited. In our ER, the patient remains confuse though hemodynamically stable. The patient WBC was normal as well as lactic acid. However COVID was positive. CXR was clear without sign of pneumonia and patient was not hypoxemic. Due to generalized weakness and positive for COVID/feverk/UTI, our ER physician requested admission to monitor with IVF. Note UA also positive for UTI and IV Ceftriaxone given. Discharge Providers Provider Date of admission: 09/20/25 22:09 Discharge Date: 09/21/25 Consults: 09/20/25 21:46 Consult to Occupational Therapy Evaluate & Treat Comment: Physician Instructions: Evaluate and treat Consult to Physical Therapy Evaluate & Treat Comment: Physician Instructions: Evaluate and Treat Discharge provider: Michael Looney MD Summary Hospital Course Hospital Course: 09/21: The patient indicates that she is feeling back to her baseline. She remains confused. She has a good appetite. She is not feeling ill. She will be observed closely at her assisted living facility and return to the ED if the current rather benign progression of her COVID infection worsens considerably. UTI. No growth on urine culture so far. Treated with IV ceftriaxone. Discharging on 7 day course of oral cephalexin. Patient not septic now with normal lactic acid and WBC. COVID infection. NO clear sign of pneumonia or hypoxemia. No additional treatment indicated. Dementia. Appears to be at baseline. Continue Depakote and quetiapine. Depression. Continue Depakote, quetiapine and sertraline. Status at Discharge Cognitive/behavioral status at discharge: at baseline, confused Functional status at discharge: uses cane/walker Overall status at discharge: patient is back to baseline Time Spent with Patient Time spent: Less than 30 minutes Exam Vital Signs (past 8 hours): - 09/21/25 09:41 Temperature 97.6 F Pulse Rate 67 Respiratory Rate 18 Blood Pressure 125/62 Pulse Oximetry 100 Oxygen Flow Rate 0 Oxygen Delivery Method Room Air Oxygen Flow Rate 0 Narrative Exam Narrative: Alert and oriented to her name. Heart is regular rate and rhythm without murmur. Lungs are clear to auscultation bilaterally. Extremities have no ankle edema. Objective Labs 09/20/25 18:56 09/20/25 18:56 Labs: Laboratory Results - last 24 hr 09/20/25 09/20/25 09/21/25 18:56 19:45 00:01 WBC 9.2 RBC 3.94 L Hgb 12.4 Hct 37.2 MCV 94.5 MCH 31.6 MCHC 33.4 RDW 13.3 Plt Count 255 Neut % (Auto) 83.3 H Lymph % (Auto) 8.0 L [place] % (Auto) 8.5 Eos % (Auto) 0.1 L Baso % (Auto) 0.1 Neut # (Auto) 7600 H Lymph # (Auto) 700 L [place] # (Auto) 800 Eos # (Auto) 0 Baso # (Auto) 0 Sodium 142 Potassium 3.9 Chloride 105 Carbon Dioxide 28 BUN 23 H Creatinine 0.82 Estimated GFR > 60 BUN/Creatinine Ratio 28.0 H Glucose 128 H Lactate 1.9 Calcium 9.2 Total Bilirubin 0.2 AST 37 H ALT 23 Alkaline Phosphatase 87 Total Protein 7.3 Albumin 4.4 Globulin 2.9 Albumin/Globulin Ratio 1.5 Procalcitonin 0.072 Urine Color Yellow Urine Appearance Clear Urine pH 6.0 Ur Specific [place] <=1.005 Urine Protein Negative Urine Glucose (UA) Negative Urine Ketones Negative Urine Occult Blood Trace-intact Urine Nitrate Positive H Urine Bilirubin Negative Urine Urobilinogen 0.2 Ur Leukocyte Esterase 3+ H Urine RBC 0-1/hpf Urine WBC 10-30/hpf H Ur Squamous Epith Cells 0-1 /hpf Urine Bacteria Few (2-10) H Ur Culture Indicated? Specimen cultured Vol Urine Centrifuged 10ml (spun) SARS-CoV-2 (PCR) Positive H Influenza A (RT-PCR) Flu a negative Influenza B (RT-PCR) Flu b negative RSV (PCR) Negative [facility] Social History Smoking Status: Unknown if ever smoked Discharge Plan Discharge Plan [facility] of provider: Follow up with facility physician in 1 week. Discharge orders & Medications Discharge Orders: Discharge (Order); Ordered 09/21/25 Ordered By: Michael Looney Prescriptions: New cephalexin 500 mg capsule 500 mg PO Q8H Qty: 20 0RF Continued levothyroxine 100 mcg tablet 100 mcg PO DAILY nystatin 100,000 unit/gram powder 1 applic topical DAILY PRN (Reason: rash) divalproex 125 mg capsule, delayed rel sprinkle 125 mg PO BID quetiapine 50 mg tablet 50 mg PO DAILY sertraline 50 mg tablet 50 mg PO DAILY Diet/Activity/Treatments Diet: Diet as Tolerated Liquid consistency: Normal/Thin Food texture: Regular [facility] Rehab type: Physical therapy Visit Report/Discharge Packet Stand Alone Forms: Patient Portal/API, Stroke Signs & Symptoms Discharge Data Attending Provider: Gagan Martinez Admit Date/Time: 09/20/25 22:09
--- NOTE | 2025-09-21 11:15 | CM.DANOTE ---
Patient is a 75 yo female who was admitted OBS Status on 09/20/25 for COVID/UTI. Pt has Medicare and [facility] for insurance and her PCP is facility Provider. EMR was reviewed. Per MD, pt hx of dementia and poor historian and admitted overnight for tx for COVID and UTI and has remained on room air and medically stable to discharge back to her [facility] today. Per PT, pt ambulated well and recommending return to [facility] and currently no need for HH either. TORSTEN secure emailed Temi Pacheco, and Phyllis at [facility] with clinicals attached and they confirm they can accept pt back today with transport around 1115 today. SW also sent signed med list, script, and discharge summary to review. Updated MD, talent buyer, JANAE, and RN. Pt's scanned POA pwk shows first POA as Nakia Cai and in EMR. CABRERA Dickens
--- NOTE | 2025-09-21 14:24 | PC.NURSE ---
Discharge Note Patient A&O to baseline, VSS, no complaints of pain/discomfort. Discharge packet reviewed with patient, all questions/concerns addressed. PIV discontinued. Belongings packed and given to patient. Patient assisted to wheelchair and transferred by facility staff.
== END 2025-09-21 11:30 ==
LOC: ED 21:01 → AC 22:10
PROVIDERS: Admitting Provider Internal Medicine; Emergency Provider Emergency Medicine; Referring Provider Emergency Medicine; Visit Provider Internal Medicine
DX: U07.1 COVID-19 (principal); N39.0 Urinary tract infection, site not specified; R53.1 Weakness; F03.90 Unspecified dementia, unspecified severity, without behavioral disturbance, psychotic disturbance, mood disturbance, and anxiety; E03.9 Hypothyroidism, unspecified; F32.A Depression, unspecified
CPT/HCPCS: 36415; 71045; 74176; 80053; 81001; 83605; 84145; 85025; 87040; 87086; 87637; 93005; 96365; 97161; 97530; 99284; G0378; J0696; J7030; J7050

== ENCOUNTER 2025-10-03 08:34 | Observation (INO) | payer MEDICARE, OTHER, MEDICAID, SELFPAY ==
[2025-09-20 22:13] VITALS: BMI 33.2
[2025-10-03] VITALS (14 sets, daily range): BP systolic 124–167; BP diastolic 63–93; PULSE 56–94; RESP 12–27; TEMP 36.3–36.6; O2SAT 94–99; BMI 35.9
--- NOTE | 2025-10-03 08:46 | ED.FALL ---
HPI - Fall General Chief Complaint: Fall Stated Complaint: GLF Time Seen by Provider: 10/03/25 08:35 Source: patient and EMS Mode of arrival: EMS History of Present Illness HPI Narrative: 75-year-old female past medical history of dementia, hypothyroidism, and depression for which she lives across the street at [facility] brought in by EMS for ground level fall with complaints of left hip pain apparently. Patient denies any headache, dizziness, neck, chest, abdomen, back pain, or bladder incontinence, numbness, tingling, down the legs, loss of consciousness, nausea, vomiting, diarrhea, constipation, or urinary complaints. Unwitnessed fall. Other than what is stated 14 point review of system is negative. Related Data Home Medications ?Medication ?Instructions ?Recorded ?Confirmed divalproex 125 mg capsule,delayed 125 mg PO BID 09/20/25 09/20/25 release sprinkle levothyroxine 100 mcg tablet 100 mcg PO DAILY 09/20/25 09/20/25 nystatin 100,000 unit/gram topical 1 applic topical DAILY PRN rash 09/20/25 09/20/25 powder quetiapine 50 mg tablet 50 mg PO DAILY 09/20/25 09/20/25 sertraline 50 mg tablet 50 mg PO DAILY 09/20/25 09/20/25 Previous Rx's ?Medication ?Instructions ?Recorded cephalexin 500 mg capsule 500 mg PO Q8H #20 caps 09/21/25 Allergies Allergy/AdvReac Type Severity Reaction Status Date / Time No Known Drug Allergies Allergy Verified 10/03/25 08:41 Review of Systems Review of Systems ROS Unobtainable: All systems reviewed & are unremarkable except as noted in HPI and below Patient History Social History household members: none Smoking Status: Unknown if ever smoked Smoking Status: Unknown if ever smoked Exam Narrative Exam Narrative: GENERAL: [75] year old patient appears stated age. Well-developed patient, in mild distress. HEAD: Atraumatic. Normocephalic. EYES: Pupils equal round and reactive. Extraocular motions intact. No scleral icterus. No injection or drainage. ENT: Nose without bleeding, purulent drainage. Throat without erythema, tonsillar hypertrophy or exudate. Airway patent. NECK: Trachea midline. Non tender CARDIOVASCULAR: Regular rate and rhythm without murmurs, gallops, or rubs. RESPIRATORY: Clear to auscultation. Breath sounds equal bilaterally. No wheezes, rales, or rhonchi. GASTROINTESTINAL: Abdomen soft, non-tender, nondistended. EXTREMITIES: No edema or joint tenderness. BACK: Nontender without deformity or crepitance. No flank tenderness. NEURO: AOx3. SKIN: No rash or erythema of visible areas Initial Vital Signs Initial Vital Signs: Vital Signs Temperature 97.8 F 10/03/25 08:35 Pulse Rate 75 10/03/25 08:35 Respiratory Rate 14 10/03/25 08:35 Blood Pressure 167/93 H 10/03/25 08:35 Pulse Oximetry 96 10/03/25 08:35 Oxygen Delivery Method Room Air 10/03/25 08:35 Scores HEART Score Heart Score history: Moderately Suspicious Heart Score EKG: Normal Heart Score Age: > or = 65 years old Heart Score risk factors: No known risk factors Heart Score troponin: > 3 times normal limit Heart Score Total: 5 Course Orders Ordered: ED Orders 10/03/25 08:46 CT head/brain wo con Stat XR pelvis 1-2V Stat 10/03/25 08:48 Complete Blood Count AUTO DIFF Stat Comprehensive Metabolic Panel Stat Lipase Stat Magnesium Stat NT-proBNP (BNP-Adult 18+) Stat Troponin I Stat 10/03/25 08:49 XR chest 1V Stat EKG-12 Lead Stat Vital Signs Vital signs: Vital Signs - 8 hr 10/03/25 08:35 10/03/25 08:40 10/03/25 08:40 Temperature 97.8 F Pulse Rate 75 83 Respiratory Rate 14 Blood Pressure 167/93 H 167/93 H Pulse Oximetry 96 94 Oxygen Delivery Method Room Air Room Air MDM - Fall Lab Data 10/03/25 08:48 10/03/25 08:48 Labs: Lab Results 10/03/25 Range/Units 08:48 WBC 4.5 (4.5-11.0) X10^3/uL RBC 3.95 L (4.0-5.2) X10^6/uL Hgb 12.4 (12.0-16.0) g/dL Hct 36.7 (36-46) % MCV 92.7 (80-100) fL MCH 31.3 (26-34) PG MCHC 33.8 (30-36) % RDW 12.9 (11.6-14.8) % Plt Count 354 (150-400) X10^3/uL Neut % (Auto) 62.8 (50-75) % Lymph % (Auto) 26.5 (25-40) % [place] % (Auto) 8.1 (3-14) % Eos % (Auto) 1.8 L (2-4) % Baso % (Auto) 0.8 (0-2) % Neut # (Auto) 2800 (5810-7219) /uL Lymph # (Auto) 1200 (7666-6321) /uL [place] # (Auto) 400 (0-900) /uL Eos # (Auto) 100 (0-450) /uL Baso # (Auto) 0 (0-100) /uL Sodium 140 (137-145) mmol/L Potassium 4.1 (3.4-5.1) mmol/L Chloride 106 (98-107) mmol/L Carbon Dioxide 26 (22-32) mmol/L BUN 22 H (7-17) mg/dL Creatinine 0.62 (0.52-1.04) mg/dL Estimated GFR > 60 (>60) mL/min BUN/Creatinine Ratio 35.5 H (6-22) Glucose 96 (70-99) mg/dL Calcium 9.1 (8.4-10.2) mg/dL Magnesium 2.0 (1.6-2.3) mg/dL Total Bilirubin 0.3 (0.2-1.3) mg/dL AST 36 (14-36) IU/L ALT 29 (<35) IU/L Alkaline Phosphatase 83 (38-126) U/L Troponin I 0.289 H* (0.01-0.034) ng/mL NT-Pro-B Natriuret Pep 86 (<450) pg/mL Total Protein 7.1 (6.3-8.2) g/dL Albumin 4.3 (3.5-5.0) g/dL Globulin 2.8 (1.7-4.1) g/dL Albumin/Globulin Ratio 1.5 (1.0-2.8) Lipase 32 (23-300) U/L Imaging Data CT scan - head: Radiologist's Impression: [address] [address] [address] Scan Report Signed Patient: Sobia Chadwick MR#: [id number] : 1950 Acct:[id number] Age/Sex: 75 / F Date of Service: 10/03/25 Loc: ED Accession Number: [id number] Procedure: CT head/brain wo con Ordering Provider: David Hackett D.O. PROCEDURE: CT HEAD/BRAIN WO CON INDICATIONS: fall trauma TECHNIQUE: Noncontrast 4.5 mm thick angled axial sections acquired from the foramen magnum to the vertex, with coronal and sagittal reformats. For radiation dose reduction, the following was used: automated exposure control, adjustment of mA and/or kV according to patient size. COMPARISON: [facility], CR, XR PELVIS 1-2V, 10/03/2025, 8:52. [facility], CR, XR CHEST 1V, 10/03/2025, 8:52. FINDINGS: Image quality: Diagnostic. CSF spaces: Basal cisterns are patent. No extra-axial fluid collections. The ventricles are symmetric in size and shape. Brain: No intracranial bleeds or mass effect. There is cerebral volume loss, with resultant ventricular and sulcal prominence. There are periventricular and deep white matter chronic small vessel ischemic changes. There is intracranial internal carotid artery atherosclerosis. Skull and face: Calvarium and visualized facial bones appear intact, without suspicious lesions. Sinuses: Visualized sinuses and mastoids are clear. IMPRESSION: No acute intracranial hemorrhage is seen. No acute intracranial pathology. Dictated by: Tru Hairston M.D. on 10/03/2025 at 8:19 Approved by: Tru Hairston M.D. on 10/03/2025 at 8:20 Chest x-ray: Radiologist's Impression: [place] [address] XRay Report Signed Patient: Sobia Chadwick MR#: [id number] : 1950 Acct:[id number] Age/Sex: 75 / F Date of Service: 10/03/25 Loc: ED Accession Number: [id number] Procedure: XR chest 1V Ordering Provider: David Hackett D.O. PROCEDURE: XR CHEST 1V INDICATIONS: trauma TECHNIQUE: One view of the chest was acquired. COMPARISON: [facility], CT, CT HEAD/BRAIN WO CON, 10/03/2025, 9:02. [facility], CR, XR PELVIS 1-2V, 10/03/2025, 8:52. [facility], CR, XR CHEST 1V, 09/20/2025, 19:10. FINDINGS: Surgical changes and devices: None. Lungs and pleura: Lungs are clear. No pleural effusions or pneumothorax. Mediastinum: Mediastinal contours appear normal. Heart size is mildly enlarged. Bones and chest wall: No displaced rib fracture is seen. No suspicious bony lesions. Age-appropriate bony degenerative changes are seen. Overlying soft tissues appear unremarkable. IMPRESSION: No edward acute abnormality is seen on this single view chest. If there is strong clinical concern for chest trauma in this patient, please consider a follow-up chest CT with IV contrast for further evaluation. Extremity x-ray #1: Radiologist's Impression: [address] [address] XRay Report Signed Patient: Sobia Chadwick MR#: [id number] : 1950 Acct:[id number] Age/Sex: 75 / F Date of Service: 10/03/25 Loc: ED Accession Number: [id number] Procedure: XR pelvis 1-2V Ordering Provider: David Hackett D.O. PROCEDURE: XR PELVIS 1-2V INDICATIONS: trauma TECHNIQUE: 1 view(s) of the pelvis acquired. COMPARISON: [facility], CT, CT HEAD/BRAIN WO CON, 10/03/2025, 9:02. [facility], CR, XR CHEST 1V, 10/03/2025, 8:52. [facility], CT, CT ABDOMEN PELVIS WO CON, 09/20/2025, 19:40. FINDINGS: Bones: No fractures or dislocations. No suspicious bony lesions. There is moderate superior joint space narrowing seen of both hips, with associated remodeling changes with subchondral sclerosis and osteophyte formation. Age-appropriate lower lumbar spine degenerative changes are noted. Soft tissues: Visualized bowel gas pattern is normal. No suspicious soft tissue calcifications. IMPRESSION: No displaced fracture can be seen on this single view study. Dictated by: Tru Hairston M.D. on 10/03/2025 at 8:21 Approved by: Tru Hairston M.D. on 10/03/2025 at 8:22 ECG Data Interpretation: Sinus Ronny HR 59 IA 162 QRS [address]- t wave Change from 09/21/25 MDM Narrative Medical decision making narrative: All labwork, vital signs, senior housekeeper note, medication list, previous ER visits and all imaging studies reviewed. Bertrand 0.289 EKG sinus ronny HR 59. Cxr - no acute process. Pelvis xray - no acute process. Ct head showed no acute process. Case d/w Dr.Bhola scarlet PEREZ - admit observation hospitalist service, no chest pain no heparin at this time. Differential dx fracture, sepsis, uti, hemorrhage, stemi, nstemi. Discharge Plan Departure Patient Disposition: Admitted as Observation Clinical Impression: Fall, Elevated troponin
--- NOTE | 2025-10-03 08:49 | DI.RAD.S_ITS ---
PROCEDURE: XR CHEST 1V INDICATIONS: trauma TECHNIQUE: One view of the chest was acquired. COMPARISON: [facility], CT, CT HEAD/BRAIN WO CON, 10/03/2025, 9:02. [facility], CR, XR PELVIS 1-2V, 10/03/2025, 8:52. [facility], CR, XR CHEST 1V, 09/20/2025, 19:10. FINDINGS: Surgical changes and devices: None. Lungs and pleura: Lungs are clear. No pleural effusions or pneumothorax. Mediastinum: Mediastinal contours appear normal. Heart size is mildly enlarged. Bones and chest wall: No displaced rib fracture is seen. No suspicious bony lesions. Age-appropriate bony degenerative changes are seen. Overlying soft tissues appear unremarkable. IMPRESSION: No edward acute abnormality is seen on this single view chest. If there is strong clinical concern for chest trauma in this patient, please consider a follow-up chest CT with IV contrast for further evaluation. Dictated by: Tru Hairston M.D. on 10/03/2025 at 8:22 Approved by: Tru Hairston M.D. on 10/03/2025 at 8:23
[2025-10-03 08:54] LABS: Add Manual Diff / Slide Review NO; Hematocrit 36.7 % (36-46); Hemoglobin 12.4 g/dL (12.0-16.0); Lymphocytes Absolute Auto 1200 /uL (1100-4500); Mean Corpuscular HGB Conc 33.8 % (30-36); Mean Corpuscular Hemoglobin 31.3 PG (26-34); Mean Corpuscular Volume 92.7 fL (80-100); Platelet Count 354 X10^3/uL (150-400)
[2025-10-03 09:06] LABS: Alanine Aminotransferase 29 IU/L (<35); Albumin 4.3 g/dL (3.5-5.0); Albumin Globulin Ratio 1.5 (1.0-2.8); Alkaline Phosphatase 83 U/L (38-126); Blood Urea Nitrogen 22 mg/dL (7-17); Calcium 9.1 mg/dL (8.4-10.2); Carbon Dioxide 26 mmol/L (22-32); Chloride 106 mmol/L (98-107); Estimated Glomerular Filt Rate > 60 mL/min (>60); Globulin 2.8 g/dL (1.7-4.1); Glucose 96 mg/dL (70-99); HEMOLYSIS < 15 (0-50); Lipase 32 U/L (23-300); Magnesium 2.0 mg/dL (1.6-2.3); Potassium 4.1 mmol/L (3.4-5.1); Sodium 140 mmol/L (137-145); Total Protein 7.1 g/dL (6.3-8.2)
[2025-10-03 09:18] LABS: NT-proBNP (BNP-Adult 18+) 86 pg/mL (<450)
[2025-10-03 09:19] LABS: Troponin I 0.289 ng/mL (0.01-0.034)
--- NOTE | 2025-10-03 09:24 | EKG_ITS ---
[address] [address] Test Date: 2025-10-03 Pat Name: Sobia Chadwick Department: [facility] Room: Gender: Female Text Transcriber: ARNEL : 1950 Requested By: Order Number: [id number] Reading MD: James Winston Measurements Intervals [place] Rate: 59 P: 62 LA: 162 QRS: 0 QRSD: 96 T: -1 QT: 410 QTc: 405 Interpretive Statements Sinus bradycardia Nonspecific T wave abnormality Electronically Signed On 10-05-2025 10:21:37 PST by James Winston
--- NOTE | 2025-10-03 09:58 | DI.ECHO.S_ITS ---
[facility] : : [address] : : [place] : : [id number] : : Phone: [phone] Echocardiogram Report + + :Name: FLORIDA SAENZ Study Date: 10/03/2025 Height: 24 in : :[facility] ReadingLocation: Weight: 190 lb : : Gender: Female BSA: 0.94 m2 : :: 1950 Age: 75 yrs BP: 145/66 mmHg: :Reason For Study: NSTEMI : :Ordering Physician: CODIE VASQUEZ Performed By: Justyn Kelly : :Referring: CODIE VASQUEZ : + + Interpretation Summary Sinus bradycardia. Normal LV size and mild concentric LVH. Normal wall motion. EF is 50-55%. Stage I diastolic dysfunction. Normal chamber sizes. Mild MAC; otherwise no significant valvular abnormalities. Estimated PA systolic pressure is 22 mmHg assuming right atrial pressure of 8 mmHg. Procedure: A two-dimensional transthoracic echocardiogram with color flow and Doppler was performed. The study quality was technically adequate. There is no prior echocardiogram noted for this patient. The patient was in normal sinus rhythm during the exam. Left Ventricle: The left ventricle is normal in size. Left ventricular wall thickness is mildly increased. Overall left ventricular systolic function is preserved. The ejection fraction is estimated to be 50-55%. Grade I diastolic dysfunction with normal left atrial pressure. Right Ventricle: The right ventricle is mildly dilated. Right ventricular systolic function is mildly reduced. Atria: The left atrial size is normal. The right atrium is normal in size. There is no Doppler evidence for an interatrial shunt. Mitral Valve: There is mild mitral annular calcification. The mitral valve leaflets appear to open well. There is no mitral valve stenosis. There is trace mitral regurgitation. Aortic Valve: The aortic valve is trileaflet. The aortic valve opens well. There is no aortic valve stenosis. No aortic regurgitation is present. Tricuspid Valve: The tricuspid valve is not well visualized, but is grossly normal. There is mild tricuspid regurgitation. Pulmonic Valve: The pulmonic valve is not well seen, but is grossly normal. There is mild pulmonic regurgitation. Great Vessels: The aortic root is normal size. The ascending aorta is normal in size. The aortic arch could not be visualized. The pulmonary artery is normal size. The IVC is of normal diameter and collapses less than 50% with a sniff. This suggests a right atrial pressure of 8 mm Hg. Pericardium/ Pleura There is no pericardial effusion. MMode/2D Measurements & Calculations LVIDd: 4.1 cm LVOT diam: 2.2 cm LVIDs: 2.6 cm Ao root diam: 3.2 cm FS: 37.7 % asc Aorta Diam: 3.1 cm EPSS: 0.78 cm IVSd: 1.2 cm LVPWd: 1.2 cm LV joyner. diameter/BSA (cm/m^2): 4.4 LV sys. diameter/BSA (cm/m^2): 2.7 LA A2 area: 18.7 cm2 RA long axis: 4.2 cm LA A4 area: 20.6 cm2 RA area: 11.6 cm2 LA length (vol): 5.7 cm RA vol: 27.3 ml LA vol: 57.2 ml RA : 29.0 ml/m2 LA vol index: 60.8 ml/m2 IVC diam: 1.6 cm RVD1 (basal): 3.4 cm RVD2 (mid): 3.4 cm TAPSE: 1.4 cm Doppler Measurements & Calculations Ao V2 max: 84.7 cm/sec LVOT Max Abelardo: 63.2 cm/sec Ao V2 mean: 62.9 cm/sec LV V1 max P.6 mmHg Ao max P.9 mmHg LV V1 VTI: 15.6 cm Ao mean P.8 mmHg ESSENCE(I,D): 3.2 cm2 Ao V2 VTI: 18.7 cm ESSENCE(V,D): 2.8 cm2 sev ratio: 0.83 ESSENCE indexed to BSA (cm^2/m^2): 3.4 MV E max abelardo: 62.7 cm/sec TR max abelardo: 197.4 cm/sec MV A max abelardo: 80.2 cm/sec TR max P.6 mmHg MV E/A: 0.78 PA V2 max: 77.8 cm/sec MV dec time: 0.19 sec PA V2 mean: 51.7 cm/sec PA mean P.2 mmHg PA pr(Accel): 44.3 mmHg SV(LVOT): 59.4 ml Qp/Qs (V,Ao): 1.0/1.9 Qp/Qs (V,LVOT): 1.5/1.0 Electronically signed by: Smita Carr M.D. on Reading Physician:10/03/2025 01:10 PM
[2025-10-03 11:57] LABS: Troponin I 0.292 ng/mL (0.01-0.034)
--- NOTE | 2025-10-03 13:37 | PC.NURSE ---
Pt arrived from ED at 1220. A&O to self only but very pleasant. No c/o pain, VSS on RA. Lung sounds CTA, bowel sounds present, CMS+ throughout bilaterally. Pt and sister in room oriented to room and call light. Bed in low position, call light within reach, bed alarm activated.
--- NOTE | 2025-10-03 14:13 | PM.CN ---
History of Present Illness Consult details Date Patient Seen: 10/03/25 Time Patient Seen: 14:32 Chief complaint: GLF Narrative: 75-year-old female with history of dementia, hypothyroidism, hyperlipidemia currently living in assisted living had a bedlevel fall and was brought to the hospital. She did not complain of any chest pain shortness of breath orthopnea PND fever chills cough urinary or GI symptoms. Incidental finding of elevated troponin with no prior medical history of coronary artery disease. Her history was under our given history of dementia. Details of the history were obtained to her sister Olivia. Code status was established after talking to her sister. From what I hear she has minimal support from her children. Primary caregiver is her sister. Meds Home Medications and Allergies Home Medications ?Medication ?Instructions ?Recorded ?Confirmed ?Type divalproex 125 mg capsule,delayed 125 mg PO BID 09/20/25 10/03/25 History release sprinkle levothyroxine 100 mcg tablet 100 mcg PO DAILY 09/20/25 10/03/25 History quetiapine 50 mg tablet 50 mg PO DAILY 09/20/25 10/03/25 History sertraline 50 mg tablet 50 mg PO DAILY 09/20/25 10/03/25 History Allergies Allergy/AdvReac Type Severity Reaction Status Date / Time No Known Drug Allergies Allergy Verified 10/03/25 08:41 Review of Systems Review of Systems ROS: Yes All systems reviewed with the patient and are negative except as otherwise documented Exam Vital Signs (past 8 hours): - 10/03/25 08:35 10/03/25 08:40 10/03/25 08:40 Temperature 97.8 F Pulse Rate 75 83 Respiratory Rate 14 Blood Pressure 167/93 H 167/93 H Pulse Oximetry 96 94 Oxygen Delivery Method Room Air Room Air 10/03/25 09:11 10/03/25 09:30 10/03/25 09:53 Temperature Pulse Rate 70 59 L Respiratory Rate Blood Pressure 131/63 Pulse Oximetry 98 95 Oxygen Delivery Method 10/03/25 09:53 10/03/25 10:00 10/03/25 10:01 Temperature Pulse Rate 80 59 L 58 L Respiratory Rate 24 21 12 Blood Pressure Pulse Oximetry 96 96 97 Oxygen Delivery Method 10/03/25 10:01 10/03/25 10:30 10/03/25 10:30 Temperature Pulse Rate 60 Respiratory Rate 18 Blood Pressure 141/81 H 145/66 H Pulse Oximetry 95 Oxygen Delivery Method 10/03/25 11:00 10/03/25 11:01 10/03/25 11:01 Temperature Pulse Rate 58 L 63 Respiratory Rate 20 20 Blood Pressure 153/70 H Pulse Oximetry Oxygen Delivery Method 10/03/25 11:30 10/03/25 11:31 10/03/25 11:31 Temperature Pulse Rate 59 L 56 L Respiratory Rate 20 20 Blood Pressure 154/68 H Pulse Oximetry 97 95 Oxygen Delivery Method 10/03/25 12:00 10/03/25 12:00 Temperature Pulse Rate 69 Respiratory Rate 27 H Blood Pressure 153/78 H Pulse Oximetry 98 Oxygen Delivery Method Oxygen Delivery Method Room Air Const General: cooperative, healthy appearing and comfortable HENCT Head: normal to inspection Eyes General: appearance normal, both eyes and all related structures Neck Neck: normal visual inspection and full ROM Chest Chest: normal inspection of the chest Resp Effort & Inspection: normal respiratory effort and able to speak in complete sentences Auscultation: clear to auscultation bilaterally Cardio Palpation: normal PMI Rate: regular rate Rhythm: regular rhythm Heart Sounds: S1 normal, S2 normal and murmur GI Inspection: normal to inspection Other: Non tender Skin General: no rashes or lesions noted Neuro Cognition: abnormal cognition Speech: speech normal Extrem General: normal to inspection and full ROM Right upper extremity: normal to inspection Left upper extremity: normal to inspection Right lower extremity: normal to inspection Left lower extremity: normal to inspection Psych Thought Process: flight of ideas and loose association Thought Content: obsessions Judgment: limited Other: Patient repeatedly stated that they are taking advantage of her. She has limited food in the house. Objective Imaging Echo: Radiologist's impression: Normal LV size and mild concentric LVH. Normal wall motion. EF is 50-55%. Stage I diastolic dysfunction. Normal chamber sizes. Mild MAC; otherwise no significant valvular abnormalities. Estimated PA systolic pressure is 22 mmHg assuming right atrial pressure of 8 mmHg. Labs 10/03/25 08:48 10/03/25 08:48 Labs: Laboratory Results - last 24 hr 10/03/25 10/03/25 08:48 11:15 WBC 4.5 RBC 3.95 L Hgb 12.4 Hct 36.7 MCV 92.7 MCH 31.3 MCHC 33.8 RDW 12.9 Plt Count 354 Neut % (Auto) 62.8 Lymph % (Auto) 26.5 [place] % (Auto) 8.1 Eos % (Auto) 1.8 L Baso % (Auto) 0.8 Neut # (Auto) 2800 Lymph # (Auto) 1200 [place] # (Auto) 400 Eos # (Auto) 100 Baso # (Auto) 0 Sodium 140 Potassium 4.1 Chloride 106 Carbon Dioxide 26 BUN 22 H Creatinine 0.62 Estimated GFR > 60 BUN/Creatinine Ratio 35.5 H Glucose 96 Calcium 9.1 Magnesium 2.0 Total Bilirubin 0.3 AST 36 ALT 29 Alkaline Phosphatase 83 Troponin I 0.289 H* 0.292 H* NT-Pro-B Natriuret Pep 86 Total Protein 7.1 Albumin 4.3 Globulin 2.8 Albumin/Globulin Ratio 1.5 Lipase 32 PFSH Social History household members: none other: Pt lives in assisted living. Tobacco & Substance Use Smoking Status: Never smoker alcohol intake: never Assessment & Plan Assessment and plan (1) Elevated troponin: Status: Acute (2) Fall: Qualifiers: Encounter type: subsequent encounter Qualified Code(s): W19.XXXD - Unspecified fall, subsequent encounter Status: Acute (3) Dementia: Qualifiers: Dementia type: unspecified type Dementia behavioral or psychological symptom: with anxiety Status: Acute Plan 75-year-old female with a history of dementia currently under assisted living hypothyroidism had a blood level fall and was found to have elevated borderline troponin levels with no associated symptoms or EKG changes. Two sets of troponins demonstrated no significant upward trend. I advised continued observation. Patient was started on aspirin and heparin for DVT prophylaxis. Continue observation and treatment plan. Patient can be discharged home with most social support. She continued to complain of people taking advantage of her not having any food in the house. Hospitalist continuous mining machine lode miner spoke to her sister and obtained do not resuscitate status. Advised more social support for this patient with underlying dementia. Assessment & Plan narrative: 75-year-old female with a history of dementia currently under assisted living hypothyroidism had a blood level fall and was found to have elevated borderline troponin levels with no associated symptoms or EKG changes. Two sets of troponins demonstrated no significant upward trend. I advised continued observation. Patient was started on aspirin and heparin for DVT prophylaxis. Time-Based Coding :: [TOTAL MINUTES] spent with patient and on the chart (including review of chart, obtaining history, exam, reviewing outside data, placing orders, documenting exam and treatment plan, and counseling patient) on [DATE].
--- NOTE | 2025-10-03 14:33 | P.HP_ITS ---
History of Present Illness History of Present Illness Date Patient Seen: 10/03/25 Time Patient Seen: 14:33 Chief complaint: GLF Narrative: Chief complaint: Ground level fall at [facility] assisted living History of present illness: 10/03: 75-year-old female with dementia ground level fall at [facility] brought to the emergency room for evaluation requiring some hip pain. Findings in the emergency department: No signs of hip fracture. Hemogram and comprehensive metabolic is unremarkable EKG is unremarkable CT head without abnormality Troponin 0.29 and unchanged on serial measurement Review of systems: No fever or chills rigors No chest pain palpitations shortness for breath Abdominal pain no melena The paresthesia paresis No loss of consciousness Physical exam: Elderly female in no acute distress HEENT unremarkable Rate and rhythm regular Lungs clear Abdomen benign Extremities no edema Neurologic nonfocal Assessment and plan: Ground level fall with soft tissue injury but no significant injury: * No further evaluation Troponin of 0.29: * Suspect this is musculoskeletal in origin * Do not suspect this is cardiac in origin Code status: Do not resuscitate Disposition: * Observation * Return to [facility] in the morning unless new findings appear Time based billing: * 55 minutes were evaluated this patient [id number] evaluation discussion with the sister discussion with providers [facility] Social History household members: none other: Pt lives in assisted living. Smoking Status: Never smoker alcohol intake: never Meds Home Medications and Allergies Home Medications ?Medication ?Instructions ?Recorded ?Confirmed ?Type divalproex 125 mg capsule,delayed 125 mg PO BID 10/03/25 History release sprinkle levothyroxine 100 mcg tablet 100 mcg PO DAILY 09/20/25 10/03/25 History quetiapine 50 mg tablet 50 mg PO DAILY 09/20/2509/08 History sertraline 50 mg tablet 50 mg PO DAILY 09/20/2509/08 History Allergies Allergy/AdvReac Type Severity Reaction Status Date / Time No Known Drug Allergies Allergy Verified 10/03/25 08:41 Exam Vital Signs (past 8 hours): - 10/03/25 08:35 10/03/25 08:40 10/03/25 08:40 Temperature 97.8 F Pulse Rate 75 83 Respiratory Rate 14 Blood Pressure 167/93 H 167/93 H Pulse Oximetry 96 94 Oxygen Delivery Method Room Air Room Air 10/03/25 09:11 10/03/25 09:30 10/03/25 09:53 Temperature Pulse Rate 70 59 L Respiratory Rate Blood Pressure 131/63 Pulse Oximetry 98 95 Oxygen Delivery Method 10/03/25 09:53 10/03/25 10:00 10/03/25 10:01 Temperature Pulse Rate 80 59 L 58 L Respiratory Rate 24 21 12 Blood Pressure Pulse Oximetry 96 96 97 Oxygen Delivery Method 10/03/25 10:01 10/03/25 10:30 10/03/25 10:30 Temperature Pulse Rate 60 Respiratory Rate 18 Blood Pressure 141/81 H 145/66 H Pulse Oximetry 95 Oxygen Delivery Method 10/03/25 11:00 10/03/25 11:01 10/03/25 11:01 Temperature Pulse Rate 58 L 63 Respiratory Rate 20 20 Blood Pressure 153/70 H Pulse Oximetry Oxygen Delivery Method 10/03/25 11:30 10/03/25 11:31 10/03/25 11:31 Temperature Pulse Rate 59 L 56 L Respiratory Rate 20 20 Blood Pressure 154/68 H Pulse Oximetry 97 95 Oxygen Delivery Method 10/03/25 12:00 10/03/25 12:00 Temperature Pulse Rate 69 Respiratory Rate 27 H Blood Pressure 153/78 H Pulse Oximetry 98 Oxygen Delivery Method Oxygen Delivery Method Room Air Objective Labs 10/03/25 08:48 10/03/25 08:48 Labs: Laboratory Results - last 24 hr 10/03/25 10/03/25 08:48 11:15 WBC 4.5 RBC 3.95 L Hgb 12.4 Hct 36.7 MCV 92.7 MCH 31.3 MCHC 33.8 RDW 12.9 Plt Count 354 Neut % (Auto) 62.8 Lymph % (Auto) 26.5 [place] % (Auto) 8.1 Eos % (Auto) 1.8 L Baso % (Auto) 0.8 Neut # (Auto) 2800 Lymph # (Auto) 1200 [place] # (Auto) 400 Eos # (Auto) 100 Baso # (Auto) 0 Sodium 140 Potassium 4.1 Chloride 106 Carbon Dioxide 26 BUN 22 H Creatinine 0.62 Estimated GFR > 60 BUN/Creatinine Ratio 35.5 H Glucose 96 Calcium 9.1 Magnesium 2.0 Total Bilirubin 0.3 AST 36 ALT 29 Alkaline Phosphatase 83 Troponin I 0.289 H* 0.292 H* NT-Pro-B Natriuret Pep 86 Total Protein 7.1 Albumin 4.3 Globulin 2.8 Albumin/Globulin Ratio 1.5 Lipase 32 Assessment & Plan Time-Based Coding :: [TOTAL MINUTES] spent with patient and on the chart (including review of chart, obtaining history, exam, reviewing outside data, placing orders, documenting exam and treatment plan, and counseling patient) on [DATE]. Quality VTE Deep Vein Thrombosis/Pulmonary Embolism Present on Admission: No
[2025-10-03] MEDS: DIVALPROEX 125 MG CAP PO ×2 (15:09→20:46)
[2025-10-03] MEDS: ASPIRIN EC 81 MG TABLET PO (15:09)
[2025-10-03] MEDS: SERTRALINE 50 MG TABLET PO (15:09)
[2025-10-03 17:48] LABS: Troponin I 0.229 ng/mL (0.01-0.034)
[2025-10-03] MEDS: HEPARIN 5,000 UNIT/ML VIAL 5000 UNIT SUBCUT (20:46)
[2025-10-03] MEDS: ATORVASTATIN 20 MG TABLET PO (20:46)
[2025-10-04] MEDS: ACETAMINOPHEN 325 MG TABLET 650 MG PO (04:27)
[2025-10-04 05:03] LABS: Appearance Urine UA CLOUDY; Bilirubin Urine UA NEGATIVE (NEGATIVE); Color Urine UA YELLOW; Glucose Urine UA NEGATIVE (Negative); Ketones Urine UA NEGATIVE (NEGATIVE); Leukocyte Esterase Urine UA 2+ (NEGATIVE); Nitrite Urine UA NEGATIVE (Negative); Occult Blood Urine UA TRACE-INTACT (Negative); Protein Urine UA NEGATIVE (Negative); Specific Gravity Urine UA <=1.005 (1.000-1.035); Urobilinogen Urine UA 0.2 E.U./dL (0.2)
[2025-10-04 05:04] LABS: pH Urine UA 7.0 (4.5-8.0)
[2025-10-04] MEDS: LEVOTHYROXINE 100 MCG TABLET PO (05:07)
[2025-10-04 05:10] LABS: Culture Indicated Urine Specimen Cultured
[2025-10-04 07:00] VITALS: BP 134/73; PULSE 98; RESP 18; TEMP 36.4; O2SAT 98
[2025-10-04] MEDS: SERTRALINE 50 MG TABLET PO (08:12)
[2025-10-04] MEDS: DIVALPROEX 125 MG CAP PO (08:13)
[2025-10-04] MEDS: ASPIRIN EC 81 MG TABLET PO (08:13)
--- NOTE | 2025-10-04 08:16 | P.DS_ITS ---
History of Present Illness History of Present Illness Date Patient Seen: 10/04/25 Time Patient Seen: 08:16 Chief complaint: GLF Narrative: Chief complaint: Ground level fall at [facility] assisted living History of present illness: 10/03: 75-year-old female with dementia ground level fall at [facility] brought to the emergency room for evaluation requiring some hip pain. Findings in the emergency department: No signs of hip fracture. Hemogram and comprehensive metabolic is unremarkable EKG is unremarkable CT head without abnormality Troponin 0.29 and unchanged on serial measurement 10/04: No further developments troponin which is musculoskeletal in origin is slowly decreasing as expected Review of systems: No fever or chills rigors No chest pain palpitations shortness for breath Abdominal pain no melena The paresthesia paresis No loss of consciousness Physical exam: Elderly female in no acute distress HEENT unremarkable Rate and rhythm regular Lungs clear Abdomen benign Extremities no edema Neurologic nonfocal Assessment and plan: Ground level fall with soft tissue injury but no significant injury: * No further evaluation Troponin of 0.29: * Suspect this is musculoskeletal in origin * Do not suspect this is cardiac in origin Code status: Do not resuscitate Disposition: * Observation * Return to [facility] today Time based billing: * 35 minutes were evaluated this patient [id number] evaluation discussion with the sister discussion with providers Discharge Providers Provider Date of admission: 10/03/25 11:21 Discharge Date: 10/04/25 Discharge provider: All Godwin MD Exam Vital Signs (past 8 hours): - 10/04/25 07:00 Temperature 97.6 F Pulse Rate 98 H Respiratory Rate 18 Blood Pressure 134/73 Pulse Oximetry 98 Oxygen Delivery Method Room Air Oxygen Flow Rate 0 Objective Labs 10/03/25 08:48 10/03/25 08:48 Labs: Laboratory Results - last 24 hr 10/03/25 10/03/25 10/03/25 08:48 11:15 17:13 WBC 4.5 RBC 3.95 L Hgb 12.4 Hct 36.7 MCV 92.7 MCH 31.3 MCHC 33.8 RDW 12.9 Plt Count 354 Neut % (Auto) 62.8 Lymph % (Auto) 26.5 [place] % (Auto) 8.1 Eos % (Auto) 1.8 L Baso % (Auto) 0.8 Neut # (Auto) 2800 Lymph # (Auto) 1200 [place] # (Auto) 400 Eos # (Auto) 100 Baso # (Auto) 0 Sodium 140 Potassium 4.1 Chloride 106 Carbon Dioxide 26 BUN 22 H Creatinine 0.62 Estimated GFR > 60 BUN/Creatinine Ratio 35.5 H Glucose 96 Calcium 9.1 Magnesium 2.0 Total Bilirubin 0.3 AST 36 ALT 29 Alkaline Phosphatase 83 Troponin I 0.289 H* 0.292 H* 0.229 H* NT-Pro-B Natriuret Pep 86 Total Protein 7.1 Albumin 4.3 Globulin 2.8 Albumin/Globulin Ratio 1.5 Lipase 32 Urine Color Urine Appearance Urine pH Ur Specific [place] Urine Protein Urine Glucose (UA) Urine Ketones Urine Occult Blood Urine Nitrate Urine Bilirubin Urine Urobilinogen Ur Leukocyte Esterase Urine RBC Urine WBC Ur Squamous Epith Cells Urine Bacteria Ur Culture Indicated? Vol Urine Centrifuged 10/04/25 04:15 WBC RBC Hgb Hct MCV MCH MCHC RDW Plt Count Neut % (Auto) Lymph % (Auto) [place] % (Auto) Eos % (Auto) Baso % (Auto) Neut # (Auto) Lymph # (Auto) [place] # (Auto) Eos # (Auto) Baso # (Auto) Sodium Potassium Chloride Carbon Dioxide BUN Creatinine Estimated GFR BUN/Creatinine Ratio Glucose Calcium Magnesium Total Bilirubin AST ALT Alkaline Phosphatase Troponin I NT-Pro-B Natriuret Pep Total Protein Albumin Globulin Albumin/Globulin Ratio Lipase Urine Color Yellow Urine Appearance Cloudy Urine pH 7.0 Ur Specific [place] <=1.005 Urine Protein Negative Urine Glucose (UA) Negative Urine Ketones Negative Urine Occult Blood Trace-intact Urine Nitrate Negative Urine Bilirubin Negative Urine Urobilinogen 0.2 Ur Leukocyte Esterase 2+ H Urine RBC 0-1/hpf Urine WBC 30-100/hpf H Ur Squamous Epith Cells 0-1 /hpf Urine Bacteria Many (>30) H Ur Culture Indicated? Specimen cultured Vol Urine Centrifuged 10ml (spun) [facility] Social History household members: none other: Pt lives in assisted living. Smoking Status: Never smoker alcohol intake: never Discharge Plan Discharge Plan Patient Disposition: Assisted Living Discharge orders & Medications Discharge Orders: Discharge (Order); Ordered 10/04/25 Ordered By: All Godwin Prescriptions: Continued levothyroxine 100 mcg tablet 100 mcg PO DAILY divalproex 125 mg capsule, delayed rel sprinkle 125 mg PO BID quetiapine 50 mg tablet 50 mg PO DAILY sertraline 50 mg tablet 50 mg PO DAILY Visit Report/Discharge Packet Stand Alone Forms: [employer], Patient Portal/API, Stroke Signs & Symptoms, Influenza Vaccine Info, Notice of Privacy Practices, Inpatient vs Outpatient, Pneumococcal Vaccine Info, Pt. Rights & Responsibilities Discharge Data Attending Provider: All Godwin Admit Date/Time: 10/03/25 11:21 Quality VTE Deep Vein Thrombosis/Pulmonary Embolism Present on Admission: No
--- NOTE | 2025-10-04 11:39 | PC.NURSE ---
Pt dressed with assistance. No IVs or tele present. Staff members from [facility] arrived to pick pt up, and RN gave d/c packet to staff. Pt exited via w/c.
--- NOTE | 2025-10-04 14:28 | CM.DANOTE ---
Patient is a 75 yo female who was admitted OBS Status on 10/03/25 for GLF. Pt has MCR and REG [place] for insurance and her PCP is not listed. EMR was reviewed. Per MD, pt worked up and back to baseline and no medical needs at this time and stable for discharge back to [facility]. Per RN, pt resides at [facility]. Per UR RN, called pt's sister/POA and updated on pt's NIÑO and sister is aware of discharge back to [facility] today and remains agreeable. SW called [facility] RN line and spoke to staff and provided update on d/c back today and no new meds and faxed clinicals and signed med list to review. RN called report to [facility] [phone] and they can transport pt today at 1100. gambling box person and MD updated. CABRERA Dickens
== END 2025-10-04 11:15 ==
LOC: ED 09:54 → AC 11:21
PROVIDERS: Admitting Provider Internal Medicine; Emergency Provider Family Medicine; Referring Provider Family Medicine; Visit Provider Internal Medicine
DX: M25.552 Pain in left hip (principal); R79.89 Other specified abnormal findings of blood chemistry; F03.90 Unspecified dementia, unspecified severity, without behavioral disturbance, psychotic disturbance, mood disturbance, and anxiety; E03.9 Hypothyroidism, unspecified; F32.A Depression, unspecified; Z66 Do not resuscitate
CPT/HCPCS: 36415; 70450; 71045; 72170; 80053; 81001; 83690; 83735; 83880; 84484; 85025; 87077; 87086; 87186; 93005; 93306; 99284; G0378; J1644